=== PATIENT | male | born 1945 | race Caucasian/White ===

== ENCOUNTER → 2017-03-12 | Day surgery (SDC) | payer MEDICARE ==
[~2017-03-12] MED LIST: ASPI81TA82 PO; CARV12.5 PO; FURO1TAB93 PO; LACTATED RINGER'S 1000 ML INJ 1,000 ML ONE; LORTA5 PO; LOSA50TA PO; PROPOFOL 500 MG/50 ML BTL IV ONE; SIMV20 PO
--- NOTE | 2017-03-12 16:02 | GIPROC ---
[facility] [address] [facility], [address] COLONOSCOPY PROCEDURE REPORT EXAM DATE: 03/12/2017 PATIENT NAME: Burke Conway MR #: [id number] BIRTHDATE: 1945 ENDOSCOPIST: Antonia Colmenares MD ORDER #: [id number] STUMP SHOOTER: STATUS: outpatient INDICATIONS: The patient is a 71 yr old male here for a colonoscopy due to average risk patient for colon cancer PROCEDURE PERFORMED: Colonoscopy with polypectomy MEDICATIONS: None and Per Anesthesia. PREP QUALITY: good ESTIMATED BLOOD LOSS: None CONSENT: The patient understands the risks and benefits of the procedure and understands that these risks include, but are not limited to: sedation, allergic reaction, infection, perforation and/or bleeding. Alternative means of evaluation and treatment include, among others: physical exam, x-rays, and/or surgical intervention. The patient elects to proceed with this endoscopic procedure. medical equipment was checked for proper function. Hand hygiene and appropriate measures for infection prevention was taken. After the risks, benefits and alternatives of the procedure were thoroughly explained, Informed consent was verified, confirmed and timeout was successfully executed by the treatment team. A digital exam was performed and revealed no abnormalities of the rectum The EC-[id number] ([id number]) and EC-[id number] ([id number]) endoscope was introduced through the anus and advanced to the cecum, which was identified by both the appendix and ileocecal valve. The instrument was then slowly withdrawn as the colon was fully examined. COLON FINDINGS: 2 polyps 1.5 cm each in the rectum removed by snare. The colon mucosa was otherwise normal. Retroflexed views revealed small internal hemorrhoids The scope was then completely withdrawn from the patient and the procedure terminated. ADVERSE EVENTS: There were no complications. IMPRESSIONS: 1. 2 polyps 1.5 cm each in the rectum removed by snare 2. The colon mucosa was otherwise normal 3. Retroflexed views revealed small internal hemorrhoids 4. Was performed 5. Revealed no abnormalities of the rectum RECOMMENDATIONS: 1. Await biopsy results. Biopsy results will not be ready for 7-10 days. If you don't hear from us in two weeks, call our office for results. 2. Yearly hemoccult 3. High fiber diet RECALL: Return 3 years Colonoscopy Antonia Colmenares MD eSigned: Antonia Colmenares MD 03/12/2017 4:01 PM cc:
== END | disposition home or self-care (01) ==
LOC: ESDC 12:51
PROVIDERS: ATTEND Hospitalist
DX: Z12.11 Encounter for screening for malignant neoplasm of colon (principal); K62.1 Rectal polyp; K64.8 Other hemorrhoids
CPT/HCPCS: 00810; 45385; 88305; J7120

== ENCOUNTER → 2017-03-31 | Day surgery (SDC) | payer MEDICARE ==
[~2017-03-31] VITALS: Ht 172.7 cm; Wt 125.8 kg
[~2017-03-31] MED LIST changes: +ACETAMINOPHEN 1000 MG/100 ML VIAL IV SCH; +ASPI81CH7 CHEW; +BUPIVACAINE LIPOSOME PF 1.3% 20 ML VIAL INFIL ONE; +BUPIVACAINE/EPINEPHRINE 0.5% 50 ML VIAL INFIL ONE; +CARV12.52 PO; +CHLORHEXIDINE GLUCONATE 2 % 1 PACK (2 CLOTHS) TOPICAL PRN; +COQ150CA PO; +DEXAMETHASONE SOD PHOS 4 MG/ML VIAL ONE; +DO NOT ADM ANY ANTICOAGULANT DRUGS PRN; +FAMOTIDINE 20 MG/2 ML VIAL ONE; +FURO40TA PO; +INSULIN HUMAN REGULAR 1,000 UNITS/10 ML VIAL SQ PRN; +KETOROLAC TROMETHAMINE 30 MG/ML (IVP) VIAL IV PUSH ONE; +KETOROLAC TROMETHAMINE 60 MG/2 ML (IM) VIAL IM ONE; +LACTATED RINGER'S 1000 ML INJ 1,000 ML IV ONE; -LACTATED RINGER'S 1000 ML INJ 1,000 ML ONE; +LACTATED RINGER'S 1000 ML IV PRN; +METOPROLOL TARTRATE 25 MG TAB PO PRN; +MIDAZOLAM HCL 2 MG/2 ML VIAL ONE; +MORPHINE SULFATE 4 MG/ML INJ IV PRN; +NEOSTIGMINE 3 MG/3 ML SYR IV ONE; +NORC5TAB PO; +OMEG12007 PO; +ONDANSETRON HCL 4 MG/2 ML VIAL IV PRN; +ONDANSETRON HCL 4 MG/2 ML VIAL IV PUSH ONE; +PHENYLEPH/NS 1000 MCG/10 ML SYR IV ONE; +POVIDONE IODINE 5% (ANTISEPSIS KIT) 4 APPLICATIONS EACH NARE PRN; +PROPOFOL 200 MG/20 ML AMP IV ONE; -PROPOFOL 500 MG/50 ML BTL IV ONE; +SIMV20TA PO; +SODIUM CHLORID 0.9% 500 ML IV PRN; +SODIUM CHLORIDE 0.9% FLUSH 10 ML FLUSH IV FLUSH PRN; +SODIUM CHLORIDE 0.9% FLUSH 10 ML FLUSH IV FLUSH SCH; +ceFAZolin 3,000 MG/NS 100 ML (if >120 kg) IV SCH; +ceFAZolin INJ 1,000 MG VIAL ONE; +ePHEDrine/NS 25 MG/5 ML SYR IV ONE; +fentaNYL CITRATE 250 MCG/5 ML AMP ONE; +oxyCODONE/ACETAMINOPHEN 5 MG/325 MG TAB PO PRN
[2017-03-31 08:05] VITALS: BP 103/71; PULSE 57; RESP 16; TEMP 97; O2SAT 97
[2017-03-31 14:45] VITALS: BP 122/72; PULSE 67; RESP 20; TEMP 97.4; O2SAT 94
--- NOTE | 2017-03-31 16:03 | PD.OP ---
cc: Antonio Connolly MD Operative Report Date of Surgery: Mar 31, 2017 Preoperative Diagnosis: Recurrent Right inguinal hernia Postoperative Diagnosis: Recurrent Right inguinal hernia Procedure: Repair recurrent Right inguinal hernia with ultrapro mesh Anesthesia: General endotracheal Surgeon: Antonio Connolly Bottle Dealer(s): ONIEL Olmstead, MS3 Operation and Findings: Operative findings: The patient was found to have a relatively limited recurrence of a previously repaired right inguinal hernia. The recurrence was located at the pubis and was less than 3 cm in diameter. The bladder had herniated through the hernia and approximately three quarters of the bladder was located in the inguinal canal and scrotum. There was approximately 300 mL' s of urine within the bladder that was outside of the retroperitoneal space. No other abnormalities were noted. Operative procedure: The patient was brought to the operating room and after satisfactory general endotracheal anesthesia was obtained, the abdomen was prepped and draped in usual sterile fashion. A combination of 1.3% Exparel and 1/4% Marcaine was used to infiltrate the skin for local anesthesia. A transverse right inguinal incision was made and carried out sharply through the subcutaneous use tissue with cautery being used for hemostasis. Incision was deepened to the external oblique fascia which was opened in the direction of its fibers down to and through the external ring. Near the pubis the defect to be palpated in the bladder was easily palpable within the inguinal canal and scrotum. By gentle pressure from below the bladder was gradually expressed into the wound and adhesions between the bladder and the surrounding tissues were taken down with the cautery with care being taken to preserve the bladder integrity. Once the bladder been completely dissected free the inguinal defect was necessarily enlarged to allow replacement of the bladder within the properitoneal space. Once the bladder had been replaced in its [place] location , it was decided to proceed with repair in the manner of Dwight. A piece of ultra Pro mesh was selected for the repair and it was folded several times on itself to provide a larger piece of mesh for this defect. Using 2 separate suture lines of 0 Prolene, both of which were anchored in the pubis, the mesh was secured into place. The superior suture line was brought between the mesh and the internal oblique muscle and fascia and the inferior sutures brought between the mesh and the shelving edge of the inguinal ligament. Laterally the mesh was secured to the inguinal ligament as well as the the internal oblique fascia and then secured to itself to form an apex. No defect was noted to remain after the repair. Hemostasis was checked for and found be satisfactory. The external oblique was closed much as possible with a running 3-0 Vicryl suture. The subcutaneous tissue was approximated with interrupted 3-0 Vicryl sutures. Approximately 50 mL's of the remaining combination local anesthesia was infiltrated in the surrounding tissues for future local anesthesia. The skin was then closed with tootie. A sterile dressing and an abdominal binder were placed the patient then awakened and taken from the operating room, in satisfactory condition, having tolerated the procedure without problem. Estimated blood loss was less than 10 mL's. The instrument, sponge, and needle counts were reported as being correct 2 at the end of procedure. Antonio Connolly MD Mar 31, 2017 16:03
== END | disposition home or self-care (01) ==
LOC: HSDC 07:56
PROVIDERS: ATTEND Surgery
DX: K40.91 Unilateral inguinal hernia, without obstruction or gangrene, recurrent (principal); I11.0 Hypertensive heart disease with heart failure; I50.9 Heart failure, unspecified; I70.90 Unspecified atherosclerosis; I25.2 Old myocardial infarction; N52.9 Male erectile dysfunction, unspecified
CPT/HCPCS: 00830; 49520; C1781; C9290; J0131; J0690; J1100; J1885; J2250; J2370; J2405; J2710; J3010; J7120